=== PATIENT | male | born 1995 | race Caucasian/White ===

== ENCOUNTER 2024-09-22 09:01 | Emergency (ER) | payer BC ==
[2024-09-22] MEDS: Ondansetron 4 MG Tab.DIS PO ONE (09:38)
== END 2024-09-22 10:03 | disposition home or self-care (01) ==
LOC: MW.ED 09:01
DX: R11.2 Nausea with vomiting, unspecified (principal); R19.7 Diarrhea, unspecified; R05.9 Cough, unspecified; F17.210 Nicotine dependence, cigarettes, uncomplicated; Z88.5 Allergy status to narcotic agent; Z79.899 Other long term (current) drug therapy
CPT/HCPCS: 87428; 99284; A9270; 99282